=== PATIENT | female | born 1945 | race Caucasian/White ===

== ENCOUNTER → 2023-01-07 | Outpatient (CLI) | payer OTHER | LOC: LAB 13:00 → LAB SHORT 13:00 | DX: N39.0 Urinary tract infection, site not specified (principal) | CPT/HCPCS: 87077; 87086; 87186 ==

== ENCOUNTER 2023-01-25 08:38 | Inpatient (IN) | payer OTHER ==
[~2023-01-25] VITALS: Ht 160 cm; Wt 72.6 kg
[2023-01-25 10:24] LABS: BASOPHILS ABSOLUTE AUTO 0.02 K/mm3 (0.00-0.23); BASOPHILS PERCENT AUTO 0 % (0-2); EOSINOPHILS ABSOLUTE AUTO 0.05 K/mm3 (0.00-0.68); EOSINOPHILS PERCENT AUTO 1 % (0-6); Hematocrit 28.4 % (33.0-51.0); Hemoglobin 8.4 g/dL (11.5-16.0); IMMATURE GRAN ABSOLUTE AUTO 0.03 K/mm3 (0.00-0.10); IMMATURE GRAN PERCENT AUTO 0 % (0-1); LYMPHOCYTES ABSOLUTE AUTO 2.84 K/mm3 (0.84-5.20); LYMPHOCYTES PERCENT AUTO 36 % (21-46); MONOCYTES ABSOLUTE AUTO 0.64 K/mm3 (0.16-1.47); MONOCYTES PERCENT AUTO 8 % (4-13); Mean Corpuscular HGB 34.6 pg (26.0-34.0); Mean Corpuscular HGB Conc 29.6 g/dL (31.5-36.5); Mean Corpuscular Volume 117 fL (80-100); Mean Platelet Volume 9.2 fL (9.1-12.4); NEUTROPHILS ABSOLUTE AUTO 4.33 K/mm3 (1.96-9.15); NEUTROPHILS PERCENT AUTO 55 % (41-73); Platelet Count 262 K/mm3 (150-400); RDW Coefficient Variation 16.1 % (11.7-14.2); RDW Standard Deviation 69.4 fL (35.1-46.3); Red Blood Cell Count 2.43 M/mm3 (3.80-5.20); White Blood Cell Count 7.91 K/mm3 (4.00-11.30)
[2023-01-25 11:06] LABS: Albumin/Globulin Ratio 1.2 (0.8-1.8); Bilirubin, Total 0.7 mg/dL (0.1-1.0); Bun/Creatinine Ratio 21.1 (12.0-20.0); Calcium, Blood 7.8 mg/dL (8.5-10.1); Creatinine, Blood 1.09 mg/dL (0.40-1.00); Globulin, Blood 2.4 g/dL (2.2-4.0); Total Protein, Blood 5.4 g/dL (6.4-8.2)
[2023-01-25 14:34] LABS: Source, Urine Clean Catch
[2023-01-25 14:36] LABS: Appearance, Urine Clear (Clear); Bilirubin, Urine Neg (Neg); Blood, Urine Neg (Neg); Color, Urine Yellow (P-Yellow); Glucose Qualitative, Urine Neg (Neg); Ketones, Urine Neg (Neg); Leukocyte Esterase, Urine Neg (Neg); Nitrite, Urine Neg (Neg); Protein, Urine Neg (Neg); Urobilinogen, Urine NORM (Normal)
[2023-01-25 17:31] VITALS: BP 120/74
[2023-01-25] MEDS ORDERED: VITAMIN D5000 UNIT PO ×2 (18:29→19:08)
[2023-01-25] MEDS ORDERED: Norco 10-325 T1 EACH PO ×2 (18:30→19:09)
[2023-01-25] MEDS ORDERED: GABA400 PO (18:30)
[2023-01-25] MEDS ORDERED: PRAM.125 PO ×2 (18:32→19:11)
[2023-01-25] MEDS ORDERED: Robaxin750 MG PO ×2 (18:32→19:11)
[2023-01-25] MEDS ORDERED: HYDCOR2.5C PR (18:34)
--- NOTE | 2023-01-25 18:44 | NUR ---
Received pt from ED at 1715 awake and alert x3. Denies pain. VSS. Resp even nonlabored on RA. SR 79 on tele. BLE pitting edema. Pt up to bathroom independently. Oriented to room and call light. MAURICE Mason at bedside along with Dr. Macias. Reviewed and entered home meds to order for hospital stay. Advanced directive copied and placed on chart. Pt is Jehovah Witness and declines blood products.
[2023-01-25] MEDS ORDERED: HORIZANT300 MG PO (19:09)
[2023-01-25] MEDS ORDERED: HYDCOR2.5C (19:10)
[2023-01-25 19:36] VITALS: BP 104/53
[2023-01-26 02:10] VITALS: BP 127/70
[2023-01-26] MEDS ORDERED: DICLOFENAC SOD100 G1 TOP (02:16)
[2023-01-26] MEDS ORDERED: Ventolin/Prove6.7 GM INH (02:17)
[2023-01-26] MEDS ORDERED: FLUTICASONE PRO16 GM (02:19)
[2023-01-26] MEDS ORDERED: VITAMIN D PO (02:20)
[2023-01-26] MEDS ORDERED: DODEX1000 MCG/3 IM (02:21)
--- NOTE | 2023-01-26 05:49 | NUR ---
PATIENT DID NOT SLEEP MORE THAN 45 MINUTES, MULTIPLE REQUESTS, INDEPENDENT TO THE BATHROOM, DRINKING LARGE AMOUNTS OF WATER, LOWER EXTREMITIE EDEMA STILL PITTING, 3+, PATIENT CONTINUES TO SCRATCH AT EDEMA AREAS. PATIENT EASILY CONFUSED WITH HOME PAIN MEDICATION REGIMEN. PATIENT MEDICAED 2X WITH NORCO AND 2X WITH ROBAXIN. LS CLEAR BUT DIMNISHED, 99% SATS ON RA, AFIBRILE, 127/70 BS, SERIAL TROPONINS ORDERED, LAST TROPONIN WAS 9, PATIENT DENIES CP, NV, TELE ON NSR 70S. NO BLOOD PRODUCTS TO BE GIVEN, CALL LIGHT WITH IN REACH, WILL RELAY TO AM RN
[2023-01-26 06:40] LABS: BASOPHILS ABSOLUTE AUTO 0.01 K/mm3 (0.00-0.23); BASOPHILS PERCENT AUTO 0 % (0-2); EOSINOPHILS ABSOLUTE AUTO 0.07 K/mm3 (0.00-0.68); EOSINOPHILS PERCENT AUTO 1 % (0-6); Hematocrit 24.7 % (33.0-51.0); Hemoglobin 7.4 g/dL (11.5-16.0); IMMATURE GRAN ABSOLUTE AUTO 0.02 K/mm3 (0.00-0.10); IMMATURE GRAN PERCENT AUTO 0 % (0-1); LYMPHOCYTES ABSOLUTE AUTO 1.33 K/mm3 (0.84-5.20); LYMPHOCYTES PERCENT AUTO 27 % (21-46); MONOCYTES ABSOLUTE AUTO 0.44 K/mm3 (0.16-1.47); MONOCYTES PERCENT AUTO 9 % (4-13); Mean Corpuscular HGB 34.7 pg (26.0-34.0); Mean Corpuscular Volume 116 fL (80-100); NEUTROPHILS ABSOLUTE AUTO 3.06 K/mm3 (1.96-9.15); NEUTROPHILS PERCENT AUTO 62 % (41-73); Platelet Count 183 K/mm3 (150-400); RDW Coefficient Variation 15.3 % (11.7-14.2); RDW Standard Deviation 65.1 fL (35.1-46.3); Red Blood Cell Count 2.13 M/mm3 (3.80-5.20); White Blood Cell Count 4.93 K/mm3 (4.00-11.30)
[2023-01-26 07:12] LABS: Bun/Creatinine Ratio 17.4 (12.0-20.0); Calcium, Blood 7.8 mg/dL (8.5-10.1); Creatinine, Blood 1.09 mg/dL (0.40-1.00); Potassium, Blood 4.2 mmol/L (3.5-5.5)
[2023-01-26 07:50] VITALS: BP 112/68
[2023-01-26 16:44] VITALS: BP 124/64
--- NOTE | 2023-01-26 17:24 | NUR ---
VSS. NO O2 NEEDED. EDEMA PITTING 2+. NO DIZZINESS NOTED THIS SHIFT. PAIN MANAGED PER EMAR. PLEASANT A&O X4. APPETITE GOOD. DISCUSSED WATER INTAKE WITH PT, NO RESTRICTIONS ORDERS AT THIS TIME. INDEPENDANT IN ROOM. DIARRHEA NOTED THIS SHIFT. WILL CONTINUE TO MONITOR. CALL LIGHT IN REACH.
[2023-01-26 20:04] VITALS: BP 115/71
[2023-01-27 04:31] VITALS: BP 110/66
--- NOTE | 2023-01-27 05:46 | NUR ---
END OF SHIFT SUMMARY PT APPEARS TO BE RESTING PEACEFULLY. UNEVENTFUL NIGHT. PT REQUESTED PAIN MEDICATION FOR LOWER BACK PAIN 12/22. NORCO EFFECTIVE. PRN ROBAXIN GIVEN WELL. PT A&O x4, VSS, AFEBRILE. PT CALM AND COOPERATIVE WITH CARE PROVIDED. TELEMETRY SINUS RHYTHM 80. RESP EVEN AND UNLABORED. CALL LIGHT WITHIN REACH. WCTM.
[2023-01-27 05:54] LABS: BASOPHILS ABSOLUTE AUTO 0.02 K/mm3 (0.00-0.23); BASOPHILS PERCENT AUTO 0 % (0-2); EOSINOPHILS PERCENT AUTO 2 % (0-6); Hematocrit 27.6 % (33.0-51.0); Hemoglobin 8.3 g/dL (11.5-16.0); IMMATURE GRAN ABSOLUTE AUTO 0.01 K/mm3 (0.00-0.10); IMMATURE GRAN PERCENT AUTO 0 % (0-1); LYMPHOCYTES ABSOLUTE AUTO 2.31 K/mm3 (0.84-5.20); LYMPHOCYTES PERCENT AUTO 43 % (21-46); MONOCYTES ABSOLUTE AUTO 0.59 K/mm3 (0.16-1.47); MONOCYTES PERCENT AUTO 11 % (4-13); Mean Corpuscular HGB 34.4 pg (26.0-34.0); Mean Corpuscular HGB Conc 30.1 g/dL (31.5-36.5); Mean Corpuscular Volume 115 fL (80-100); Mean Platelet Volume 9.1 fL (9.1-12.4); NEUTROPHILS ABSOLUTE AUTO 2.34 K/mm3 (1.96-9.15); NEUTROPHILS PERCENT AUTO 44 % (41-73); Platelet Count 227 K/mm3 (150-400); RDW Coefficient Variation 15.1 % (11.7-14.2); RDW Standard Deviation 63.7 fL (35.1-46.3); Red Blood Cell Count 2.41 M/mm3 (3.80-5.20); White Blood Cell Count 5.37 K/mm3 (4.00-11.30)
[2023-01-27 06:20] LABS: Bun/Creatinine Ratio 17.5 (12.0-20.0); Creatinine, Blood 1.2 mg/dL (0.40-1.00); Potassium, Blood 4.4 mmol/L (3.5-5.5)
[2023-01-27 09:09] VITALS: BP 95/60
[2023-01-27 15:41] VITALS: BP 101/65
--- NOTE | 2023-01-27 17:11 | NUR ---
SHIFT SUMMARY PT AOX4, INDEPENDENT IN THE ROOM. PT CALLS WELL AND MAKES HER NEEDS KNOWN. MEDICATED FOR PAIN PER THE EMAR AND PT TOLERATES IT WELL. MULTIPLE FAMILY MEMBERS AT THE BS TODAY. PT HAS HAD NO C/O CP/N/V/SOB. SHE DOES HAVE A SLIGHT COUGH BUT IT HAS IMPROVED T/O THE DAY. PT IS IN GOOD SPIRITS. FIRE SAFETY PROCEDURES AND PROCOTOLS DISCUSSED WITH HER AND SHE VERBALIZED UNDERSTANDING. CALL LIGHT WTIHIN REACH, BED IN THE LOWEST POSITION. WILL REPORT TO ONCOMING NURSE.
[2023-01-27 19:30] VITALS: BP 106/63
[2023-01-28 04:14] VITALS: BP 102/71
--- NOTE | 2023-01-28 05:22 | NUR ---
SHIFT SUMMARY: PATIENT A&OX4. CALM, PLEASANT AND COOPERATIVE c CARE. USES CALL LIGHT APPROPRIATELY AND ABLE TO MAKE NEEDS KNOWN. DENIES CP/PRESSURE, SOB, N/V. PATIENT WAS ON TELE BEGINNING OF SHIFT, SR HR IN THE HIGH 90'S BPM. TELE WAS DC'D AT AROUND 2300'S PER ORDER. PATIENT PAIN TO LOWER BACK WELL CONTROLLED c EMAR PAIN MEDS AND REPOSITIONING. PATIENT REPORTS PRODUCTIVE COUGH c THICK YELLOW PLEGHM. PATIENT AMBULATES TO BATHROOM AND BACK IN BED INDEPENDENTLY AND SLEPT ON AND OFF T/O SHIFT. RECEIVED SCHEDULED MEDS PER EMAR. VITAL SIGNS REVIEWED. CALL LIGHT IN REACH. PATIENT EDUCATED ON NON SMOKING POLICY, RISK OF INJURY AND IGNITION SOURCES WHEN O2 IN USE. PATIENT DENIES SMOKING AND VERBALIZED UNDERSTANDING.
[2023-01-28 08:13] VITALS: BP 102/63
[2023-01-28] MEDS ORDERED: B-1100 M1 PO (10:12)
--- NOTE | 2023-01-28 12:40 | NUR ---
DISCHARGE NOTE PT DISCHARGED TO HOME, PICKED UP BY HER DAUGHTER IN [place]. TAKEN TO THE VEHICLE BY WHEELCHAIR. IV REMOVED. MEDICATIONS FAXED TO THE PHARMACY OF HER CHOICE. DISCHARGE INFORMATION AND EDUCATION PROVIDED. FIRE SAFETY PROTOCOLS AND PROCEDURES MAINTAINED, PT ACKNOWLEDGED UNDERSTANDING.
== END 2023-01-28 12:28 | disposition home or self-care (01) | DRG 641 ==
LOC: ER 08:38 → ERHOLD 08:39 → MEDS 08:39 → ENPENDDIS 01-28 09:44 → MEDS 01-28 12:28
PROVIDERS: Internal Medicine; Student in an Organized Health Care Education/Training Program; ADMIT Internal Medicine
DX: E51.12 Wet beriberi (principal); M79.7 Fibromyalgia; M19.90 Unspecified osteoarthritis, unspecified site; M81.0 Age-related osteoporosis without current pathological fracture; D50.9 Iron deficiency anemia, unspecified; D63.1 Anemia in chronic kidney disease; J45.909 Unspecified asthma, uncomplicated; K62.3 Rectal prolapse; N18.31 Chronic kidney disease, stage 3a; G25.81 Restless legs syndrome; G89.4 Chronic pain syndrome; F41.9 Anxiety disorder, unspecified; F32.A Depression, unspecified; Z86.010 Personal history of colon polyps; Z87.19 Personal history of other diseases of the digestive system; E55.9 Vitamin D deficiency, unspecified; Z90.49 Acquired absence of other specified parts of digestive tract; Z90.710 Acquired absence of both cervix and uterus; Z90.11 Acquired absence of right breast and nipple; Z86.718 Personal history of other venous thrombosis and embolism; Z88.8 Allergy status to other drugs, medicaments and biological substances
CPT/HCPCS: 36415; 74177; 80048; 80053; 81003; 82272; 83880; 84443; 84484; 85025; 85730; 93005; 93010; 93306; 93970; 94760; 96374-59; 96375; 99284-25; A9270; J1650; J1885; J1940; J3411; J3420; J7030; Q9967

== ENCOUNTER → 2023-03-16 | Outpatient (CLI) | payer OTHER ==
[~2023-03-16] MED LIST: B-1100 M1 PO; DIAZ2 PO; DICLOFENAC SOD100 G1 TOP; DODEX1000 MCG/3 IM; FLUTICASONE PRO16 GM; GABA400 PO; HORIZANT300 MG PO; HYDCOR2.5C; HYDCOR2.5C PR; Neurontin 300300 MG PO; Norco 10-325 T1 EACH PO; PRAM.125 PO; Robaxin750 MG PO; VITAMIN D PO; VITAMIN D5000 UNIT PO; Ventolin/Prove6.7 GM INH
[2023-03-16 09:39] LABS: Protein, Urine Quantitative 9.4 mg/dL (0.0-11.9)
== END | disposition home or self-care (01) ==
LOC: LAB SHORT 08:02 → LAB 08:02
PROVIDERS: Physician Assistant
DX: N18.31 Chronic kidney disease, stage 3a (principal); E88.09 Other disorders of plasma-protein metabolism, not elsewhere classified
CPT/HCPCS: 81050; 84156

== ENCOUNTER → 2023-04-15 | Outpatient (CLI) | payer OTHER ==
[2023-04-15 17:06] LABS: Source, Urine Clean Catch
[2023-04-15 18:45] LABS: Appearance, Urine Hazy (Clear); Bilirubin, Urine Neg (Neg); Blood, Urine 1+ (Neg); Color, Urine Yellow (P-Yellow); Glucose Qualitative, Urine Neg (Neg); Ketones, Urine Neg (Neg); Leukocyte Esterase, Urine 2+ (Neg); Nitrite, Urine Pos (Neg); Protein, Urine 2+ (Neg); Urobilinogen, Urine NORM (Normal)
[2023-04-15 18:52] LABS: Bacteria Many /hpf; Red Blood Cells, Urine 0-2 /hpf (0-2); Squamous Epithelial Cells Few /hpf (Few); White Blood Cells, Urine 25-50 /hpf (0-5)
== END ==
LOC: LAB SHORT 17:02 → LAB 17:02
PROVIDERS: Physician Assistant
DX: R33.9 Retention of urine, unspecified (principal)
CPT/HCPCS: 81001; 87077; 87086; 87186

== ENCOUNTER 2023-07-24 13:36 | Day surgery (SDC) | payer OTHER | END 2023-07-24 23:09 | disposition home or self-care (01) | LOC: MHTC NI 13:36 → MHTC 13:36 → MHTC NI 13:37 → MHTC 14:00 → MHTC NI 23:09 | DX: I48.91 Unspecified atrial fibrillation (principal) | CPT/HCPCS: 93246 ==

== ENCOUNTER → 2023-08-03 | Outpatient (CLI) | payer OTHER ==
[2023-08-03 08:07] LABS: Source, Urine Clean Catch
[2023-08-03 12:55] LABS: Appearance, Urine Clear (Clear); Bilirubin, Urine Neg (Neg); Blood, Urine Neg (Neg); Color, Urine Yellow (P-Yellow); Glucose Qualitative, Urine Neg (Neg); Ketones, Urine Neg (Neg); Leukocyte Esterase, Urine Neg (Neg); Nitrite, Urine Pos (Neg); Protein, Urine Neg (Neg); Urobilinogen, Urine NORM (Normal)
[2023-08-03 13:16] LABS: Bacteria Many /hpf; Red Blood Cells, Urine 0-2 /hpf (0-2); Squamous Epithelial Cells Few /hpf (Few)
== END ==
LOC: LAB SHORT 07:00 → LAB 07:00
PROVIDERS: Hospitalist
DX: N18.2 Chronic kidney disease, stage 2 (mild) (principal)
CPT/HCPCS: 81001; 87077; 87086; 87186

== ENCOUNTER → 2024-02-09 | Outpatient (CLI) | payer OTHER ==
[2024-02-09 10:27] LABS: Source, Urine Clean Catch
[2024-02-09 18:38] LABS: Appearance, Urine Clear (Clear); Bilirubin, Urine Neg (Neg); Blood, Urine Neg (Neg); Glucose Qualitative, Urine Neg (Neg); Ketones, Urine Neg (Neg); Leukocyte Esterase, Urine Neg (Neg); Nitrite, Urine Pos (Neg); Protein, Urine Neg (Neg); Urobilinogen, Urine NORM (Normal)
[2024-02-09 18:51] LABS: Color, Urine Pale Yellow (P-Yellow)
[2024-02-09 18:52] LABS: Bacteria Many /hpf; Red Blood Cells, Urine 0-2 /hpf (0-2); Squamous Epithelial Cells Rare /hpf (Few); White Blood Cells, Urine 0-2 /hpf (0-5)
== END | disposition home or self-care (01) ==
LOC: LAB 10:25 → LAB SHORT 10:25
PROVIDERS: Hospitalist
DX: R82.90 Unspecified abnormal findings in urine (principal)
CPT/HCPCS: 81001; 87077; 87086; 87186

== ENCOUNTER → 2024-05-20 | Outpatient (CLI) | payer OTHER | LOC: LAB 14:50 → LAB SHORT 14:50 | DX: R35.0 Frequency of micturition (principal); R30.0 Dysuria | CPT/HCPCS: 87077; 87086; 87186 ==

== ENCOUNTER → 2024-05-30 | Outpatient (CLI) | payer OTHER ==
[2024-05-30 09:24] LABS: Source, Urine Clean Catch
[2024-05-30 12:28] LABS: Appearance, Urine Clear (Clear); Bilirubin, Urine Neg (Neg); Blood, Urine Neg (Neg); Color, Urine Yellow (P-Yellow); Glucose Qualitative, Urine Neg (Neg); Ketones, Urine Neg (Neg); Leukocyte Esterase, Urine Neg (Neg); Nitrite, Urine Neg (Neg); Protein, Urine Neg (Neg); Urobilinogen, Urine NORM (Normal)
== END | disposition home or self-care (01) ==
LOC: LAB SHORT 09:22 → LAB 09:22
PROVIDERS: Hospitalist
DX: R82.90 Unspecified abnormal findings in urine (principal)
CPT/HCPCS: 81003

== ENCOUNTER → 2024-07-13 | Outpatient (CLI) | payer OTHER ==
[2024-07-13 15:14] LABS: Source, Urine Clean Catch
[2024-07-13 16:09] LABS: Appearance, Urine Hazy (Clear); Bilirubin, Urine Neg (Neg); Blood, Urine Neg (Neg); Color, Urine Yellow (P-Yellow); Glucose Qualitative, Urine Neg (Neg); Ketones, Urine Neg (Neg); Leukocyte Esterase, Urine 1+ (Neg); Nitrite, Urine Pos (Neg); Protein, Urine 1+ (Neg); Urobilinogen, Urine NORM (Normal)
[2024-07-13 16:23] LABS: Bacteria Many /hpf; Red Blood Cells, Urine 0-2 /hpf (0-2); Squamous Epithelial Cells Few /hpf (Few)
== END | disposition home or self-care (01) ==
LOC: LAB 13:06 → LAB SHORT 13:06
PROVIDERS: Hospitalist
DX: N18.2 Chronic kidney disease, stage 2 (mild) (principal); R82.90 Unspecified abnormal findings in urine
CPT/HCPCS: 81001; 87077; 87086; 87186

== ENCOUNTER 2025-05-01 20:07 | Emergency (ER) | payer OTHER ==
[~2025-05-01] VITALS: Ht 157.5 cm; Wt 68.0 kg
[2025-05-01 20:27] LABS: BASOPHILS ABSOLUTE AUTO 0.02 K/mm3 (0.00-0.23); BASOPHILS PERCENT AUTO 1 % (0-2); EOSINOPHILS ABSOLUTE AUTO 0.06 K/mm3 (0.00-0.68); EOSINOPHILS PERCENT AUTO 1 % (0-6); Hematocrit 35.8 % (33.0-51.0); Hemoglobin 11.1 g/dL (11.5-16.0); IMMATURE GRAN ABSOLUTE AUTO 0.01 K/mm3 (0.00-0.10); IMMATURE GRAN PERCENT AUTO 0 % (0-1); LYMPHOCYTES ABSOLUTE AUTO 1.87 K/mm3 (0.84-5.20); LYMPHOCYTES PERCENT AUTO 45 % (21-46); MONOCYTES ABSOLUTE AUTO 0.49 K/mm3 (0.16-1.47); MONOCYTES PERCENT AUTO 12 % (4-13); Mean Corpuscular HGB Conc 31.0 g/dL (31.5-36.5); Mean Corpuscular Volume 113 fL (80-100); NEUTROPHILS ABSOLUTE AUTO 1.75 K/mm3 (1.96-9.15); NEUTROPHILS PERCENT AUTO 42 % (41-73); NRBC ABSOLUTE 0.00 K/mm3 (0.00-0.02); NRBC Auto 0.0 /100 WBC (0.0-0.2); Platelet Count 149 K/mm3 (150-400); RDW Coefficient Variation 15.7 % (11.7-14.2); RDW Standard Deviation 64.7 fL (35.1-46.3)
[2025-05-01 20:41] LABS: Source, Urine Clean Catch
[2025-05-01 20:48] LABS: Bilirubin, Urine Neg (Neg); Glucose Qualitative, Urine Neg (Neg); Ketones, Urine Neg (Neg); Leukocyte Esterase, Urine Neg (Neg); Protein, Urine 1+ (Neg); Specific Gravity, Urine 1.015 (1.003-1.022); Urobilinogen, Urine NORM (Normal)
[2025-05-01 20:53] LABS: Alanine Aminotransfer (ALT/SGP 72.0 U/L (12-78); Albumin, Blood 3.2 g/dL (3.4-5.0); Albumin/Globulin Ratio 1.1 (0.8-1.8); Anion Gap 6.0 mmol/L (3-11); Aspartate Aminotrans (AST/SGOT 57.0 U/L (12-37); Bilirubin, Total 0.6 mg/dL (0.1-1.0); Blood Urea Nitrogen 21.0 mg/dL (8-24); CO2, Blood 21.0 mmol/L (21-32); Calcium, Blood 8.4 mg/dL (8.5-10.1); Chloride, Blood 116.0 mmol/L (98-108); Creatinine, Blood 1.23 mg/dL (0.40-1.00); Globulin, Blood 2.8 g/dL (2.2-4.0); Glucose, Blood 94.0 mg/dL (70-99); Potassium, Blood 4.4 mmol/L (3.5-5.5); Sodium, Blood 139.0 mmol/L (136-145); Total Protein, Blood 6.0 g/dL (6.4-8.2)
[2025-05-01 20:54] LABS: Color, Urine Yellow (P-Yellow)
[2025-05-01 20:55] LABS: Red Blood Cells, Urine 0-2 /hpf (0-2)
[2025-05-01] MEDS ORDERED: NS 1,000 ML IV SCH (22:45)
[2025-05-01 23:17] LABS: Magnesium, Blood 2.3 mg/dL (1.6-2.4); Phosphorus, Blood 2.9 mg/dL (2.5-4.9)
[2025-05-01 23:45] VITALS: BP 93/63
[2025-05-05] MEDS ORDERED: NITR100CA PO (09:52)
== END 2025-05-01 23:50 | disposition home or self-care (01) ==
LOC: ER 20:07
PROVIDERS: Student in an Organized Health Care Education/Training Program
DX: E86.0 Dehydration (principal); M81.0 Age-related osteoporosis without current pathological fracture; Z88.8 Allergy status to other drugs, medicaments and biological substances; Z91.048 Other nonmedicinal substance allergy status; Z79.899 Other long term (current) drug therapy; Z59.89 Other problems related to housing and economic circumstances
CPT/HCPCS: 80053; 81001; 83735; 83880; 84100; 84484; 85025; 87077; 87086; 87186; 93005; 93010; 96360; 99284-25; A9270; J7030

== ENCOUNTER → 2025-05-17 | Outpatient (CLI) | payer OTHER ==
[~2025-05-17] MED LIST changes: +NITR100CA PO
[2025-05-17 11:52] LABS: Source, Urine Clean Catch
[2025-05-17 13:11] LABS: Bilirubin, Urine Neg (Neg); Color, Urine Yellow (P-Yellow); Glucose Qualitative, Urine Neg (Neg); Ketones, Urine Neg (Neg); Leukocyte Esterase, Urine 2+ (Neg); Protein, Urine 2+ (Neg); Specific Gravity, Urine 1.015 (1.003-1.022); Urobilinogen, Urine NORM (Normal)
[2025-05-17 13:40] LABS: Red Blood Cells, Urine 0-2 /hpf (0-2)
== END | disposition home or self-care (01) ==
LOC: LAB SHORT 11:50 → LAB 11:50
PROVIDERS: Hospitalist
DX: N18.31 Chronic kidney disease, stage 3a (principal); R82.90 Unspecified abnormal findings in urine; R30.0 Dysuria
CPT/HCPCS: 81001; 87077; 87086; 87186